=== PATIENT | male | born 1975 | race Caucasian/White ===

== ENCOUNTER 2024-01-22 16:29 | Observation (INO) | payer BC ==
[2024-01-22] MEDS ORDERED: Sodium Chloride 0.9% 10 ML Syringe FLUSH PRN (16:55)
[2024-01-22 17:23] LABS: BASOPHILS ABSOLUTE AUTO 0.03 K/uL (0.00-0.10); BASOPHILS PERCENT AUTO 0.2 % (0.1-1.3); EOSINOPHILS ABSOLUTE AUTO 0.12 K/uL (0.00-0.40); EOSINOPHILS PERCENT AUTO 0.7 % (0.0-5.4); HEMATOCRIT 40.9 % (38.4-49.7); HEMOGLOBIN 14.7 g/dL (12.9-16.9); IMMATURE GRAN ABSOLUTE AUTO 0.06 K/uL (0.00-0.23); IMMATURE GRAN PERCENT AUTO 0.4 % (0.0-0.7); LYMPHOCYTES ABSOLUTE AUTO 1.43 K/uL (0.8-3.3); LYMPHOCYTES PERCENT AUTO 8.6 % (11.4-47.7); MEAN CORPUSCULAR HGB CONC 35.9 g/dL (31.6-35.5); MEAN CORPUSCULAR VOLUME 89.1 fL (81.4-99.0); NEUTROPHILS ABSOLUTE AUTO 13.44 K/uL (1.0-7.6); NEUTROPHILS PERCENT AUTO 81.1 % (40.0-78.1); PLATELET COUNT,PLT 275 K/uL (130-375); RED BLOOD CELL COUNT 4.59 M/uL (4.14-5.76); WHITE BLOOD CELL COUNT,WBC 16.6 K/uL (3.2-11.0)
[2024-01-22 17:33] LABS: A/G RATIO 1.3 (1.2-2.2); ALANINE AMINOTRANSFERASE,ALT 23 U/L (12-78); ALBUMIN 4.1 g/dL (3.4-5.0); ALKALINE PHOSPHATASE 95 U/L (46-116); ASPARTATE AMNIOTRANSFERASE,AST 17 U/L (15-37); BILIRUBIN TOTAL 0.9 mg/dL (0.2-1.0); BLOOD UREA NITROGEN,BUN 11 mg/dL (7-18); C-REACTIVE PROTEIN 4.79 mg/dL (<0.50); CALCIUM 9.3 mg/dL (8.5-10.1); CARBON DIOXIDE,CO2 28 mmol/L (21-32); CHLORIDE,CL 102 mmol/L (100-108); EST CRCL DRUG DOSING (CG) 99.16 mL/min; ESTIMATED GFR 93 mL/min (>60); GLUCOSE RANDOM 103 mg/dL (74-106); POTASSIUM,K 3.8 mmol/L (3.6-5.2); PROTEIN TOTAL,TP 7.3 g/dL (6.4-8.2); SODIUM,NA 139 mmol/L (140-148)
[2024-01-22 17:34] LABS: ANION GAP 12.8 mmol/L (5.0-14.0)
[2024-01-22 17:35] LABS: LACTIC ACID 1.2 mmol/L (0.4-2.0)
[2024-01-22] MEDS: Iopamidol 612 MG/ML 100 ML Bottle IV SCH (17:44)
[2024-01-22] MEDS: Sodium Chloride 0.9% 10 ML Syringe FLUSH PRN (17:45)
[2024-01-22] MEDS: Sodium Chloride 0.9% 80 ML IV SCH (17:45)
[2024-01-22] MEDS: Sodium Chloride 0.9% 1,000 ML IV ONE (17:56)
[2024-01-22] MEDS: Ampicillin/Sulbactam Na 3 GM in Sodium Chloride 0.9% 100 ML IV ONE (17:56)
[2024-01-22] MEDS: Lactated Ringers 1,000 ML IV ONE ×2 (18:28→18:30)
[2024-01-22] MEDS ORDERED: Rocuronium 50 MG/5 ML Vial ONE (18:48)
[2024-01-22] MEDS ORDERED: Succinylcholine 200 MG/10 ML MDV ONE (18:48)
[2024-01-22] MEDS ORDERED: Glycopyrrolate 0.2 MG/ML 5 ML MDV ONE (18:48)
[2024-01-22] MEDS ORDERED: Dexamethasone 4 MG/ML SDV ONE (18:48)
[2024-01-22] MEDS ORDERED: Propofol 200 MG/20 ML SDV ONE (18:48)
[2024-01-22] MEDS ORDERED: Neostigmine Methylsulfate 10 MG/10 ML MDV ONE (18:48)
[2024-01-22] MEDS ORDERED: Ondansetron 4 MG/2 ML SDV ONE (18:48)
[2024-01-22] MEDS ORDERED: fentaNYL 250 MCG/5 ML SDV ONE (18:49)
[2024-01-22] MEDS ORDERED: fentaNYL 100 MCG/2 ML SDV ONE (19:47)
[2024-01-22] MEDS ORDERED: Lactated Ringers 1,000 ML ONE (20:18)
[2024-01-22] MEDS ORDERED: Ondansetron 4 MG/2 ML SDV IV PRN (20:25)
[2024-01-22] MEDS ORDERED: oxyCODONE 5 MG Tab PO PRN (20:25)
[2024-01-22] MEDS ORDERED: HYDROmorphone 0.5 MG/0.5 ML Syringe IVPUSH PRN (20:25)
[2024-01-22] MEDS: Bupivacaine 0.25%/EPINEPHrine 1:200,000 30 ML SDV ONE (20:36)
[2024-01-22] MEDS: Acetaminophen 500 MG Tab PO SCH (21:22)
== END 2024-01-22 22:15 | disposition home or self-care (01) ==
LOC: JP.ED 16:29 → JP.SDS 18:34 → JP.MS 20:23
PROVIDERS: ADMIT Surgery; ATTEND Surgery
DX: K35.80 Unspecified acute appendicitis (principal); F17.210 Nicotine dependence, cigarettes, uncomplicated
CPT/HCPCS: 00840; 36415; 44970; 74177; 80053; 83605; 85025; 86140; 87040; 96361; 96365; 99284; 99285; A9270; J0295; J0330; J1100; J1596; J2704; J2710; J3010; J3490; J7030; J7120; Q9967; J2405

== ENCOUNTER 2024-03-13 05:46 | Day surgery (SDC) | payer BC ==
[2024-03-13] MEDS ORDERED: fentaNYL 50 MCG/ML SDV ONE (06:47)
[2024-03-13] MEDS ORDERED: Propofol 200 MG/20 ML SDV ONE ×2 (06:47→07:07)
[2024-03-13] MEDS ORDERED: Midazolam 1 MG/ML 2 ML SDV ONE (06:47)
[2024-03-13] MEDS: Lactated Ringers 1,000 ML IV SCH (07:04)
== END 2024-03-13 09:00 | disposition home or self-care (01) ==
LOC: JP.SDS 05:46
PROVIDERS: ATTEND Family Medicine
DX: Z12.11 Encounter for screening for malignant neoplasm of colon (principal); D12.8 Benign neoplasm of rectum; K57.30 Diverticulosis of large intestine without perforation or abscess without bleeding; K64.8 Other hemorrhoids; F17.200 Nicotine dependence, unspecified, uncomplicated; Z80.0 Family history of malignant neoplasm of digestive organs
CPT/HCPCS: 45380; 45385; J2250; J2704; J3010; J7120; 88305